=== PATIENT | male | born 1955 | race Caucasian/White ===

== ENCOUNTER 2020-08-26 15:56 | Emergency (ER) | payer OTHER ==
[~2020-08-26] VITALS: Ht 170.2 cm; Wt 72.6 kg
[2020-08-26] MEDS ORDERED: Norco 5-325 Ta1 EACH PO (18:51)
[2020-08-26] MEDS ORDERED: CYCLOBENZAPRINE5 MG PO (18:51)
== END 2020-08-26 19:05 | disposition home or self-care (01) ==
LOC: ER 15:56
DX: M54.2 Cervicalgia (principal); M54.5 Low back pain; Z88.5 Allergy status to narcotic agent; V53.5XXA Driver of pick-up truck or van injured in collision with car, pick-up truck or van in traffic accident, initial encounter; Y92.410 Unspecified street and highway as the place of occurrence of the external cause
CPT/HCPCS: 99283; A9270